=== PATIENT | female | born 1940 | race Caucasian/White ===

== ENCOUNTER 2018-07-09 14:45 | Emergency (ER) | payer BC, MEDICARE ==
[~2018-07-09] VITALS: Ht 170.2 cm; Wt 85.7 kg
[~2018-07-09 14:45] MED LIST: ALLO100 PO; COLCRYS PO; ERGO400 PO; EXFORGE PO; FERR325 PO; FURO20 PO; LEVSOD125 PO; OXYACE5T PO; OXYC10ER PO; PARO20 PO; PIOG15 PO; PIOG30 PO; Percocet 5-3251 EACH PO; SIMVASTATIN PO; TETR250 PO; VITAMIN D PO
[2018-07-09] MEDS ORDERED: AMLO10 PO (15:04)
[2018-07-09] MEDS ORDERED: CLON.1 PO (15:04)
[2018-07-09] MEDS ORDERED: GABA100 PO (15:04)
[2018-07-09] MEDS ORDERED: HYDR1TAB94 PO (15:22)
== END 2018-07-09 15:27 | disposition home or self-care (01) ==
LOC: ER 14:45
DX: S30.0XXA Contusion of lower back and pelvis, initial encounter (principal); I10 Essential (primary) hypertension; F41.9 Anxiety disorder, unspecified; Z87.891 Personal history of nicotine dependence; W19.XXXA Unspecified fall, initial encounter
CPT/HCPCS: 73502

== ENCOUNTER → 2018-12-26 | Outpatient (CLI) | payer BC, MEDICARE ==
[~2018-12-26] MED LIST changes: +AMLO10 PO; +CLON.1 PO; +FURO20; +GABA100 PO; +HYDR1TAB94 PO; +LEVSOD100; +NEPHRO-VITE RX1 EACH
[2018-12-30 15:06] LABS: HPV 16 Negative (Negative); HPV 18 Negative (Negative); HPV OTHER HR TYPES Negative (Negative)
== END | disposition home or self-care (01) ==
LOC: LAB 19:23 → LAB SHORT 19:23
PROVIDERS: Physician Assistant
DX: Z01.419 Encounter for gynecological examination (general) (routine) without abnormal findings (principal)
CPT/HCPCS: 87624; G0145

== ENCOUNTER 2019-02-18 11:57 | Day surgery (SDC) | payer BC, MEDICARE ==
[~2019-02-18] VITALS: Ht 167.6 cm; Wt 85.9 kg
== END 2019-02-18 13:32 | disposition home or self-care (01) ==
LOC: ORSCSDS 11:57
PROVIDERS: Internal Medicine Gastroenterology
PROC: 0DJD8ZZ Inspection of Lower Intestinal Tract, Via Natural or Artificial Opening Endoscopic (ICD-10-PCS; principal; 2019-02-18 13:15)
DX: Z12.11 Encounter for screening for malignant neoplasm of colon (principal); K57.30 Diverticulosis of large intestine without perforation or abscess without bleeding; E11.22 Type 2 diabetes mellitus with diabetic chronic kidney disease; I12.9 Hypertensive chronic kidney disease with stage 1 through stage 4 chronic kidney disease, or unspecified chronic kidney disease; N18.9 Chronic kidney disease, unspecified; E03.9 Hypothyroidism, unspecified; Z79.899 Other long term (current) drug therapy
CPT/HCPCS: 82947; J2704; J7120

== ENCOUNTER → 2020-10-17 | Outpatient (CLI) | payer MEDICARE, BC ==
[2020-10-17 15:51] LABS: Appearance, Urine Clear (Clear); Bilirubin, Urine Neg (Neg); Blood, Urine Neg (Neg); Color, Urine Yellow (P-Yellow); Glucose Qualitative, Urine Neg (Neg); Ketones, Urine 1+ (Neg); Leukocyte Esterase, Urine 2+ (Neg); Nitrite, Urine Neg (Neg); Protein, Urine 1+ (Neg); Specific Gravity, Urine 1.025 (1.003-1.022); Urobilinogen, Urine NORM (Normal)
[2020-10-17 16:08] LABS: Bacteria Mod /hpf; Red Blood Cells, Urine 0-2 /hpf (0-2); Squamous Epithelial Cells Few /hpf (Few); Transitional Epithelial Cells Few /hpf (0-Rare)
== END | disposition home or self-care (01) ==
LOC: LAB SHORT 13:55 → LAB 13:55
PROVIDERS: Internal Medicine
DX: R39.9 Unspecified symptoms and signs involving the genitourinary system (principal)
CPT/HCPCS: 81001; 87086

== ENCOUNTER → 2021-02-15 | Outpatient (CLI) | payer MEDICARE ==
[2021-02-16 13:12] LABS: HPV 16 Negative (Negative); HPV 18 Negative (Negative); HPV OTHER HR TYPES Negative (Negative)
== END ==
LOC: LAB 15:57 → LAB SHORT 15:57
PROVIDERS: Physician Assistant
DX: Z01.419 Encounter for gynecological examination (general) (routine) without abnormal findings (principal)
CPT/HCPCS: 87624; G0123

== ENCOUNTER → 2023-05-21 | Outpatient (CLI) | payer MEDICARE, BC | LOC: LAB SHORT 09:16 → PLD 09:16 | DX: D04.72 Carcinoma in situ of skin of left lower limb, including hip (principal); D04.62 Carcinoma in situ of skin of left upper limb, including shoulder | CPT/HCPCS: 88305 ==

== ENCOUNTER → 2024-02-17 | Outpatient (CLI) | payer MEDICARE, BC ==
[2024-02-17 15:34] LABS: Adenovirus F 40/41 Not Detected (NOT DETECT); Astrovirus Not Detected (NOT DETECT); Campylobacter Sp Not Detected (NOT DETECT); Cryptosporidium Not Detected (NOT DETECT); Cyclospora Cayetanensis Not Detected (NOT DETECT); E. Coli O157 Not Detected (NOT DETECT); Entamoeba Histolytica Not Detected (NOT DETECT); Enteroaggregative E. coli-EAEC Not Detected (NOT DETECT); Enteropathogenic E. coli-EPEC Not Detected (NOT DETECT); Enterotoxigenic E. coli-ETEC Not Detected (NOT DETECT); Giardia Lamblia Not Detected (NOT DETECT); Norovirus GI/GII Not Detected (NOT DETECT); Plesiomonas Shigelloides Not Detected (NOT DETECT); Rotavirus A Not Detected (NOT DETECT); Salmonella Sp Not Detected (NOT DETECT); Sapovirus Not Detected (NOT DETECT); Shiga Toxin-prod E. coli-STEC Not Detected (NOT DETECT); Shigella/Enteroin E. coli-EIEC Not Detected (NOT DETECT); Vibrio Cholerae Not Detected (NOT DETECT); Vibrio Sp Not Detected (NOT DETECT); Yersinia Enterocolitica Not Detected (NOT DETECT)
[2024-02-18 12:42] LABS: Stool Occult Bld Immuno 1 Negative (NEGATIVE)
== END | disposition home or self-care (01) ==
LOC: LAB SHORT 09:45
PROVIDERS: Physician Assistant
DX: R19.7 Diarrhea, unspecified (principal)
CPT/HCPCS: 87507; G0328

== ENCOUNTER → 2024-08-21 | Outpatient (CLI) | payer MEDICARE, BC ==
[2024-08-26 15:57] LABS: PANCREATIC ELASTASE,FECAL 176 ug/g (>=100)
== END ==
LOC: LAB 11:00 → LAB SHORT 11:00
PROVIDERS: Physician Assistant
DX: K52.9 Noninfective gastroenteritis and colitis, unspecified (principal)
CPT/HCPCS: 82653

== ENCOUNTER 2024-09-30 12:17 | Day surgery (SDC) | payer MEDICARE, BC ==
[~2024-09-30] VITALS: Ht 167.6 cm; Wt 71.8 kg
[~2024-09-30 12:17] MED LIST changes: +Lactated Ringer's 1,000 ML IV ONE; +Povidone-Iodine 450 DROP/30 ML Solution ONE; +Tetracaine HCl/Pf 0.5% Opth Soln 4 ml ONE
[2024-09-30] MEDS ORDERED: ASPI81CH (12:35)
[2024-09-30] MEDS ORDERED: CHOLESTYRAMI239.4 G1 (12:36)
[2024-09-30] MEDS ORDERED: Flonase 0.05% N16 GM (12:37)
[2024-09-30] MEDS ORDERED: EFUDEX40 GM (12:37)
[2024-09-30] MEDS ORDERED: METO50ER (12:38)
[2024-09-30] MEDS ORDERED: Isosorbide Mono30 MG (12:38)
[2024-09-30] MEDS ORDERED: MICO100S (12:39)
[2024-09-30] MEDS ORDERED: MYCO250 (12:39)
[2024-09-30] MEDS ORDERED: NITR.4SL (12:42)
[2024-09-30] MEDS ORDERED: Lactated Ringer's 1,000 ML IV ONE (13:22)
[2024-09-30] MEDS ORDERED: propofoL 50 ML IV ONE (13:43)
[2024-09-30 14:56] VITALS: BP 110/45
[2024-09-30] MEDS ORDERED: Phenylephrine HCl 100 MCG/ML-NS 10MLSYR (1MG/10ML) IV ONE (18:39)
== END 2024-09-30 14:55 | disposition home or self-care (01) ==
LOC: ORSCSDS 12:17
PROVIDERS: Specialist
PROC: 0DBE8ZX Excision of Large Intestine, Via Natural or Artificial Opening Endoscopic, Diagnostic (ICD-10-PCS; principal; 2024-09-30 13:30)
DX: R19.4 Change in bowel habit (principal); R63.4 Abnormal weight loss; R10.31 Right lower quadrant pain; K52.9 Noninfective gastroenteritis and colitis, unspecified; Z94.0 Kidney transplant status; K64.8 Other hemorrhoids; K57.30 Diverticulosis of large intestine without perforation or abscess without bleeding; I10 Essential (primary) hypertension; Z79.899 Other long term (current) drug therapy
CPT/HCPCS: 88305; J2371; J2704; J7120